=== PATIENT | female | born 1990 | race Caucasian/White ===

== ENCOUNTER 2018-11-27 08:23 | Emergency (ER) | payer OTHER ==
[~2018-11-27] VITALS: Ht 162.6 cm; Wt 93.4 kg
[2018-11-27 08:26] VITALS: Ht 162.6 cm; Wt 93.4 kg
[2018-11-27 09:34] VITALS: BP 149/95
== END 2018-11-27 09:34 | disposition home or self-care (01) ==
LOC: ED 08:23
DX: J02.9 Acute pharyngitis, unspecified (principal)

== ENCOUNTER 2020-09-25 08:31 | Emergency (ER) | payer OTHER ==
[~2020-09-25] VITALS: Ht 170.2 cm; Wt 68.0 kg
[2020-09-25 08:33] VITALS: Ht 170.2 cm; Wt 68.0 kg
[2020-09-25 09:35] LABS: BASOPHIL % 0.3 % (0.2-1.3); PLATELET COUNT 248 x10^3mcL (179-408); RED CELL DISTRIBUTION WIDTH 13.3 % (12.3-17.7)
[2020-09-25 09:45] LABS: CARBON DIOXIDE 27.5 mmol/L (21-32); CHLORIDE SERUM 97 mmol/L (98-107); CREATININE SERUM 0.9 mg/dL (0.6-1.0); GFR1 > 60 mL/min; GLUCOSE SERUM 112 mg/dL (74-106); POTASSIUM SERUM 3.1 mmol/L (3.5-5.1); SODIUM SERUM 133 mmol/L (136-145)
[2020-09-25 09:50] LABS: ALBUMIN 3.6 g/dL (3.4-5.0); ALKALINE PHOSPHATASE 138 U/L (46-116); ALT/SGPT 52 U/L (14-59); AST/SGOT 31 U/L (15-37); BILIRUBIN TOTAL 0.9 mg/dL (0.20-1.00)
[2020-09-25 09:52] LABS: TOTAL PROTEIN, SERUM 8.3 g/dL (6.4-8.2)
[2020-09-25] MEDS ORDERED: MORGIDOX 1X100100 MG PO (14:42)
[2020-09-25] MEDS ORDERED: MORGIDOX 2X100100 MG PO (14:46)
[2020-09-25 14:50] VITALS: BP 118/80
== END 2020-09-25 14:50 | disposition home or self-care (01) ==
LOC: ED 08:31
PROVIDERS: Emergency Medicine
DX: J18.9 Pneumonia, unspecified organism (principal); E87.2 Acidosis; R79.89 Other specified abnormal findings of blood chemistry
CPT/HCPCS: 85378; J0456; J0696; J7050; J7060; Q9967

== ENCOUNTER 2020-09-26 13:58 | Emergency (ER) | payer OTHER ==
[~2020-09-26] VITALS: Ht 162.6 cm; Wt 88.9 kg
[~2020-09-26 13:58] MED LIST: MORGIDOX 1X100100 MG PO; MORGIDOX 2X100100 MG PO
[2020-09-26 14:07] VITALS: Ht 162.6 cm; Wt 88.9 kg
[2020-09-26 15:45] LABS: PLATELET COUNT 211 x10^3mcL (179-408); RED CELL DISTRIBUTION WIDTH 13.3 % (12.3-17.7)
[2020-09-26 16:03] LABS: BAND NEUTROPHIL 23 % (0-10); BASOPHIL 0 % (0-2); MONOCYTE 2 % (0-7); SEGMENTED NEUTROPHILS 69 % (37-75)
[2020-09-26 16:04] LABS: PLATELET MORPHOLOGY PLATELETS NORMAL; rbc morphology (normal/abnorm) NORMAL (NORMAL)
[2020-09-26 19:13] VITALS: BP 120/79
== END 2020-09-26 19:13 | disposition home or self-care (01) ==
LOC: ED 13:58
PROVIDERS: Emergency Medicine
DX: J18.1 Lobar pneumonia, unspecified organism (principal); E66.9 Obesity, unspecified; J45.909 Unspecified asthma, uncomplicated; Z68.33 Body mass index [BMI] 33.0-33.9, adult; Z98.890 Other specified postprocedural states
CPT/HCPCS: 36600; 87804; J2543; J7030; J7040